=== PATIENT | male | born 1980 | race Caucasian/White ===

== ENCOUNTER → 2017-10-24 | Outpatient (CLI) | payer OTHER ==
--- NOTE | 2017-10-24 15:49 | DIAGNOSTIC IMAGING REPORT ---
CHEST 2 VIEWS ROUTINE CLINICAL HISTORY: R05 [id number] dyspnea COMPARISON STUDY: No previous studies for comparison. FINDINGS: The bones soft tissues and hemidiaphragms are normal. The cardiomediastinal silhouette is normal. The lungs are clear. The pulmonary vasculature is normal. Mild apical fibrosis and pleural thickening considered to be radiographically chronic. IMPRESSION: No acute process. The above report was generated using voice recognition software. It may contain grammatical, syntax or spelling errors. Electronically signed by: Mao Concepcion M.D. 10/24/2017 3:48 PM Dictated Date/Time: 10/24/2017 3:48 PM
== END | disposition home or self-care (01) ==
LOC: C.RAD1850 15:31
PROVIDERS: ATTEND Nurse Practitioner Family
DX: R05 Cough (principal)

== ENCOUNTER 2023-04-26 17:23 | Inpatient (IN) ==
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
[2023-04-26] MEDS ORDERED: MoRPHine SULFATE 4 MG/ML 1 ML CARP\\VIAL IM STA (17:53)
[2023-04-26] MEDS ORDERED: cephALEXin 250 MG CAP PO STA (17:53)
[2023-04-26] MEDS ORDERED: DIPHTHERIA/TETANUS/PERTUSSIS Vaccine (Tdap, Age 7+yrs) 0.5mL SYR/VL IM ONE (17:53)
[2023-04-26] MEDS ORDERED: LIDO/EPINEPHRINE/SOD BICARB 50 ML VIAL INFIL ONE (17:53)
[2023-04-26] MEDS ORDERED: oxyCODONE/ACETAMINOPHEN 5mg/325mg TAB PO STA (19:41)
[2023-04-26] MEDS ORDERED: HYDROmorphone INJ 0.5 MG/0.5 ML SYR IV STA ×2 (19:48→21:46)
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
[2023-04-26] MEDS ORDERED: ONDANSETRON INJ 2 MG/ML 2 ML VIAL IV PRN (21:10)
[2023-04-26] MEDS ORDERED: NALOXONE HCL 0.4 MG/1 ML VIAL/CARP IV PRN (21:10)
[2023-04-26] MEDS ORDERED: ACETAMINOPHEN 325 MG TAB PO PRN (21:10)
[2023-04-26] MEDS ORDERED: bisacodyL 10 MG SUPP PR PRN (21:10)
[2023-04-26] MEDS ORDERED: MAGNESIUM HYDROXIDE SUSP 30 ML UDC PO PRN (21:10)
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
[2023-04-26] MEDS: LACTATED RINGER'S 1,000 ML IV SCH (21:51)
[2023-04-26 21:56] LABS: Basophils # (auto) 0.03 K/uL (0-0.2); Basophils % (auto) 0.2 %; Eosinophils # (auto) 0.01 K/uL (0-0.50); Eosinophils % (auto) 0.1 %; Hematocrit (blood only) 39.6 % (42.0-52.0); Hemoglobin 13.5 g/dl (14.0-18.0); Immature Granulocytes # (auto) 0.05 K/uL (0.01-0.20); Immature Granulocytes % (auto) 0.4 %; Lymphocytes # (auto) 1.47 K/uL (1.2-3.4); Lymphocytes % (auto) 12.2 %; Mean Corpuscular Hemoglobin 31.1 pg (25.0-34.0); Mean Corpuscular Hgb Conc 34.1 g/dL (32.0-36.0); Mean Corpuscular Volume 91.2 fL (80.0-100.0); Monocytes # (auto) 1.04 K/uL (0.11-0.59); Monocytes % (auto) 8.6 %; Neutrophils # (auto) 9.44 K/uL (1.40-6.50); Neutrophils % (auto) 78.5 %; Platelet Count 226 K/uL (130-400); Red Blood Count 4.34 M/uL (4.70-6.10); White Blood Count 12.04 K/ul (4.8-10.8)
[2023-04-26 22:06] LABS: Alanine Aminotransferase 14 U/L (7-52); Albumin Globulin Ratio 1.7 (0.9-2); Albumin Level 4.4 gm/dl (3.4-5.0); Alkaline Phosphatase 53 U/L (34-104); Anion Gap 10 (3-11); Aspartate Aminotransferase 18 U/L (13-39); Bilirubin,Total 0.6 mg/dl (0.2-1.0); Blood Urea Nitrogen 15 mg/dl (6-23); Carbon Dioxide 23 mmol/L (21-32); Chloride 103 mmol/L (98-107); Est GFR (African American) 104.9 ml/min; Est GFR (Non-African American) 90.5 ml/min; Globulin 2.6 gm/dl (2.5-4.0); Glucose 100 mg/dl (70-99(Fasting)); Potassium 4.1 mmol/L (3.5-5.1); Sodium 136 mmol/L (136-145)
[2023-04-26 22:25] LABS: Prothrombin Time 10.6 Seconds (9.0-12.0)
--- NOTE | 2023-04-26 22:35 | CT Scan Report ---
Exam(s): CT PELVIS Without Contrast EXAM: CT Pelvis Without Intravenous Contrast CLINICAL HISTORY: Reason for exam: suspected femoral neck fracture. TECHNIQUE: Axial computed tomography images of the pelvis without intravenous contrast. CTDI is 13.27 mGy and DLP is 444.32 mGy-cm. Automated exposure control was utilized for the study. A dose lowering technique was utilized adhering to the principles of ALARA. COMPARISON: No relevant prior studies available. FINDINGS: Bowel: Unremarkable. No obstruction. No mucosal thickening. Appendix: No findings to suggest acute appendicitis. Intraperitoneal space: Unremarkable. No free air. No significant fluid collection. Bladder: Unremarkable. No stones. Reproductive: Unremarkable as visualized. Bones/joints: No acute fracture. No dislocation. Soft tissues: Unremarkable. Vasculature: Unremarkable. No lower abdominal aortic aneurysm. Lymph nodes: Unremarkable. No enlarged lymph nodes. IMPRESSION: Normal pelvis CT. Electronically signed by: Evaristo Everett MD 04/26/23 22:34 PM
[2023-04-26] MEDS: oxyCODONE HCL IR 5 MG TAB (IMMEDIATE RELEASE) PO PRN (23:38)
[2023-04-27] MEDS: oxyCODONE HCL IR 5 MG TAB (IMMEDIATE RELEASE) PO PRN ×4 (03:42→19:38)
[2023-04-27] MEDS ORDERED: ceFAZolin 2000MG 2,000 MG/15 ML SYR IV SCH (06:00)
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
[2023-04-27] MEDS ORDERED: LIDOCAINE 2% 2 ML VIAL/AMP(20MG/ML) INFIL ONE (07:02)
[2023-04-27] MEDS ORDERED: ONDANSETRON INJ 2 MG/ML 2 ML VIAL ONE (07:02)
[2023-04-27] MEDS ORDERED: fentaNYL citrate PF 100 MCG/2 ML VIAL ONE ×2 (07:02→08:42)
[2023-04-27] MEDS ORDERED: PROPOFOL IV EMULSION 10 MG/ML 20 ML VIAL IV ONE ×2 (07:02→08:42)
[2023-04-27] MEDS ORDERED: MIDAZOLAM HCL 1 MG/ML 2ML VIAL ONE (07:02)
[2023-04-27] MEDS ORDERED: DEXAMETHASONE SOD INJ 4 MG/ML VIAL ONE (07:02)
[2023-04-27] MEDS ORDERED: BUPIVACAINE 0.5 % 5 MG/1 ML MPF 30ML VIAL ONE (07:41)
[2023-04-27] MEDS ORDERED: LIDOCAINE 1%/EPINEPHRINE 1:100,000 20 ML VIAL ONE (07:41)
[2023-04-27] MEDS ORDERED: HYDROmorphone INJ 1 MG/ML SYRINGE ONE (08:01)
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
[2023-04-27] MEDS ORDERED: ATROPINE SULFATE 0.1 MG/ML 10ML SYR IV PRN (08:03)
[2023-04-27] MEDS ORDERED: ePHEDrine sulfate 50 MG/ML AMP IV PRN (08:03)
[2023-04-27] MEDS ORDERED: PROMETHAZINE HCL 12.5 MG in SODIUM CHLORIDE 0.9% 50 ML IV PRN (08:03)
[2023-04-27] MEDS ORDERED: ONDANSETRON INJ 2 MG/ML 2 ML VIAL IV PRN (08:03)
[2023-04-27] MEDS ORDERED: HYDROmorphone INJ 2 MG/ML SYR/VIAL IV PRN (08:03)
[2023-04-27] MEDS ORDERED: ceFAZolin 330 MG/ML 1 GM VIAL ONE (08:12)
[2023-04-27] MEDS ORDERED: KETOROLAC 30 MG/ML VIAL ONE (09:18)
--- NOTE | 2023-04-27 09:38 | Post Operative Brief Note ---
Immediate Post Op Note v1 Date of Surgery April 27, 2023 Pre & Post Diagnosis Operation Date: 04/27/23 07:15 Pre-Op Diagnosis: Right Hip Fracture Post-Op Diagnosis: Right Hip Fracture I identified the patient and participated in the time-out.: Yes Procedure Operation Date: 04/27/23 07:15 Actual Procedures p Intramedullary Amos, ORIF Femur fracture(Right) - Babatunde Parrish MD Surgeon Babatunde Parrish MD Space Technologist C JUAN Nesbitt (no fellow avail) Estimated Blood Loss 45 Findings Consistent with Post-Op Diagnosis Fluids 1000 cc Anesthesia Type General Complications none
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
[2023-04-27] MEDS: fentaNYL citrate PF 100 MCG/2 ML VIAL IV PRN ×2 (09:53→09:58)
[2023-04-27] MEDS ORDERED: MEPERIDINE HCL 25 MG/ML CARP/VIAL ONE (09:58)
[2023-04-27] MEDS ORDERED: MEPERIDINE HCL 25 MG/ML CARP/VIAL IV ONE (09:59)
--- NOTE | 2023-04-27 10:10 | Fluoroscopy Report ---
FL hip RT 2-3V CLINICAL HISTORY: RT HIP NAIL COMPARISON STUDY: CT pelvis 04/26/2023 FLUOROSCOPY TIME: 84.1 seconds FLUOROSCOPY IMAGES: 4 EXPOSURE DOSE: 8.92 mGy FINDINGS: Status post placement of an trochanteric nail with medullary jen fixating the acute right p roximal femoral fracture. Satisfactory alignment. No unexpected opaque foreign bodies. IMPRESSION: Fluoroscopic assistance as above. ACT 112: Negative or not required by law. Electronically signed by: Ric Longo M.D. 04/27/2023 10:09 AM
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
--- NOTE | 2023-04-27 10:49 | Anesthesiology Progress Note ---
Date of Service April 27, 2023 Anesthesia Post Procedure Vital Signs Vital Signs: Temp Pulse Pulse Pulse Resp BP BP 04/27/23 10:35 37.1 C 86 18 139/88 04/27/23 10:25 86 18 149/86 H 04/27/23 10:15 89 16 164/88 H 04/27/23 10:05 96 H 16 151/89 H 04/27/23 09:55 99 H 15 145/86 H 04/27/23 09:48 36.4 C L 92 H 14 124/80 04/27/23 00:20 37.0 C 76 16 125/78 04/27/23 00:00 76 04/26/23 23:43 77 15 130/65 04/26/23 23:01 82 21 130/65 04/26/23 22:07 81 16 108/72 04/26/23 21:30 83 15 04/26/23 21:00 82 13 04/26/23 20:30 78 18 04/26/23 20:13 81 13 04/26/23 20:22 84 04/26/23 17:25 36.8 C 87 20 134/91 Pulse Ox O2 Del Method O2 Flow Rate 04/27/23 10:35 98 Nasal Cannula 3 04/27/23 10:25 100 Oxymask 6 04/27/23 10:15 99 Oxymask 12 04/27/23 10:05 94 Oxymask 12 04/27/23 09:55 99 Oxymask 12 04/27/23 09:48 99 Oxymask 12 04/27/23 00:20 95 Room Air 04/27/23 00:00 04/26/23 23:43 96 04/26/23 23:01 94 Room Air 04/26/23 22:07 95 Room Air 04/26/23 21:30 96 04/26/23 21:00 97 04/26/23 20:30 98 04/26/23 20:13 98 04/26/23 20:22 04/26/23 17:25 99 Room Air Pain Intensity Right Hip: Pain Intensity: 8 Transfer of Care Handoff Completed per policy Notes Mental Status: alert / awake / arousable and participated in evaluation Patient Amnestic to Procedure: Yes Nausea / Vomiting: adequately controlled Pain: adequately controlled Airway Patency, RR, SpO2: stable & adequate BP & HR: stable & adequate Hydration State: stable & adequate Anesthetic Complications: no major complications apparent
[2023-04-27] MEDS ORDERED: TAMSULOSIN HCL 0.4 MG CAP PO PRN (10:54)
[2023-04-27] MEDS ORDERED: NALOXONE HCL 0.4 MG/1 ML VIAL/CARP IV PRN (10:54)
[2023-04-27] MEDS ORDERED: METOCLOPRAMIDE HCL INJ 5 MG/ML 2 ML VIAL IV PRN (10:54)
[2023-04-27] MEDS: LACTATED RINGER'S 1,000 ML IV SCH (11:11)
[2023-04-27] MEDS: HYDROmorphone INJ 0.5 MG/0.5 ML SYR IV PRN ×2 (11:40→16:43)
[2023-04-27] MEDS: ceFAZolin 2000MG 2,000 MG/15 ML SYR IV SCH ×2 (16:36→23:33)
[2023-04-27] MEDS: FERROUS GLUCONATE 324 MG TAB PO SCH (16:37)
[2023-04-27] MEDS: ASCORBIC ACID 500 MG TAB PO SCH (16:37)
[2023-04-27] MEDS ORDERED: DOCUSATE SODIUM/SENNA 50/8.6MG TAB PO SCH (21:00)
[2023-04-27] MEDS: APIXABAN 2.5 MG TAB PO SCH (21:01)
[2023-04-27] MEDS: DOCUSATE SODIUM 100 MG CAP PO SCH (21:01)
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
[2023-04-28] MEDS: oxyCODONE HCL IR 5 MG TAB (IMMEDIATE RELEASE) PO PRN ×2 (01:55→07:41)
[2023-04-28 06:31] LABS: Hematocrit (blood only) 35.9 % (42.0-52.0); Hemoglobin 12.3 g/dl (14.0-18.0); Mean Corpuscular Hemoglobin 31.6 pg (25.0-34.0); Mean Corpuscular Hgb Conc 34.3 g/dL (32.0-36.0); Mean Corpuscular Volume 92.3 fL (80.0-100.0); Mean Platelet Volume 9.4 fL (9.4-12.4); Platelet Count 160 K/uL (130-400); RDW Coefficient of Variation 12.2 % (11.5-14.5); RDW Standard Deviation 41.1 fL (36.4-46.3); Red Blood Count 3.89 M/uL (4.70-6.10); White Blood Count 8.29 K/ul (4.8-10.8)
[2023-04-28 06:58] LABS: BUN Creatinine Ratio 9.8 (10-20); Calcium 8.1 mg/dl (8.6-10.3); Creatinine Clr Calc Pharmacy 116.2 ml/min; Est GFR (African American) 123.8 ml/min; Est GFR (Non-African American) 106.8 ml/min
[2023-04-28] MEDS: APIXABAN 2.5 MG TAB PO SCH (07:41)
[2023-04-28] MEDS: FERROUS GLUCONATE 324 MG TAB PO SCH (07:42)
[2023-04-28] MEDS: ASCORBIC ACID 500 MG TAB PO SCH (07:42)
[2023-04-28] MEDS: DOCUSATE SODIUM 100 MG CAP PO SCH (07:42)
[2023-04-28] MEDS ORDERED: dexAMETHasone 10 MG in SYRINGE 0 ML IV SCH (08:00)
[2023-04-28] MEDS ORDERED: CHOLECALCIFEROL 1,000 UNITS 25 MCG TAB PO SCH (09:00)
[2023-04-28] MEDS ORDERED: MULTIVITAMIN TAB PO SCH (09:00)
--- NOTE | 2023-04-28 09:14 | Orthopedic Progress Note ---
Date of Service April 28, 2023 Assessment & Plan (1) S/P ORIF (open reduction internal fixation) fracture: Plan: The patient was educated regarding today's findings. Conservative care measures were discussed. He was seen in conjunction with Dr. Parrish, who also evaluated the patient and encouraged with today's diagnosis and treatment plan. We will see how his pain evolves over the course of the morning. If he continues to do well and the pain improves, he may be discharged to home today with home health services. Continue PT/OT Continue ambulation with a walker Follow-up in the office in 2 weeks as scheduled for staple removal Admission and Anticipated Discharge Date Admission Date: April 26, 2023 Subjective This 43-year-old male is seen today in his room. He states overall he is doing well. He was out of bed yesterday and ambulatory using his walker. He states he let the pain get away from him this morning, and was hurting a fair amount. He did receive oral pain medication and is currently improving. He is currently eating breakfast. He denies any chest pain, shortness of breath, nausea, vomiting, or abdominal pain. Review of Systems Review of Systems: Unchanged from yesterday. Physical Exam Physical Exam: General: Well-developed, well-nourished, middle-aged male, in no acute distress. Sitting in bed. Alert and oriented. Eating breakfast. Skin: Warm and dry with good turgor. No rashes. No ecchymosis or peripheral edema. Postsurgical dressings are in place on the right hip. Musculoskeletal: The patient has intact motor function of the right leg. He is able to set his quad and perform a straight leg raise. He has intact motor function of the ankle and toes. No significant pain with logrolling of the hip. Neurologic: Gross sensation is intact across all aspects of the right leg by soft touch. Peripheral pulses are 2+. Results & Data Vital Signs (Past 12 Hours) Vital Signs Temp Pulse Pulse Resp BP Pulse Ox O2 Del Method 04/28/23 07:50 36.8 C 70 18 135/75 97 Room Air 04/27/23 21:23 37.2 C 73 16 133/73 99 Room Air Laboratory Results CBC obtained this morning shows a white count of 8.2. H&H of 12.3 and 35.9. Platelets are normal at 160,000. PRP obtained this morning is entirely unremarkable. Normal BUN, creatinine, and electrolytes. Glucose is 112.
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
== END 2023-04-28 11:42 | disposition home health service (06) | DRG 482 ==
LOC: ED 17:23 → 3W 21:19